=== PATIENT | male | born 1980 | race Caucasian/White ===

== ENCOUNTER 2022-12-18 07:02 | Day surgery (SDC) | payer BC ==
[2022-12-17 12:55] VITALS: BMI 31.6
[~2022-12-18 07:02] MED LIST: Dexmedetomidine 200 MCG/2 ML VIAL ONE; Ketamine 50 MG/ML (10ML VIAL) ONE; fentaNYL 50 mcg/mL 1 mL Vial ONE; fentaNYL PF 100 MCG/2 ML SYRINGE ONE
[2022-12-18] MEDS ORDERED: Acetaminophen 500 MG TAB ONE (07:47)
[2022-12-18] MEDS ORDERED: Oxymetazoline HCl 0.05% (30 ML BOT) ONE ×2 (07:57→08:03)
[2022-12-18] MEDS ORDERED: Lidocaine 1% (PF) 30 ML VIAL ONE (08:03)
[2022-12-18] MEDS ORDERED: EPINEPHrine 1 MG/ML AMP ONE (08:03)
[2022-12-18] MEDS ORDERED: Bacitracin Zinc Ointment 30 gm TUBE ONE (08:03)
[2022-12-18] MEDS ORDERED: PROPOFOL 200 MG/20 ML VIAL ONE (08:19)
[2022-12-18] MEDS ORDERED: PHENYLEPHRINE-NS 100 MCG/ML 10 ML SYRINGE ONE (08:19)
[2022-12-18] MEDS ORDERED: ePHEDrine Sulfate 50 MG/10 ML VIAL ONE (08:19)
[2022-12-18] MEDS ORDERED: Dexamethasone 20 MG/5 ML VIAL ONE (08:19)
[2022-12-18] MEDS ORDERED: Ondansetron PF 4 MG/2 ML Vial ONE (08:19)
[2022-12-18] MEDS ORDERED: Rocuronium Bromide 10 MG/ML (10ML VIAL) ONE (08:19)
[2022-12-18] MEDS ORDERED: fentaNYL PF 100 MCG/2 ML SYRINGE ONE (08:21)
[2022-12-18] MEDS ORDERED: SUGAMMADEX SODIUM 200 MG/2 ML VIAL ONE (08:21)
[2022-12-18] MEDS ORDERED: LevoFLOXacin 500 mg/D5W 100 ML BAG ONE (08:32)
[2022-12-18] MEDS ORDERED: fentaNYL 50 mcg/mL 1 mL Vial ONE (10:46)
[2022-12-18] MEDS ORDERED: Hydrocodone-Acetamin 15 ML UDCUP ONE (12:01)
== END 2022-12-18 13:17 | disposition home or self-care (01) ==
LOC: SDC 07:02
PROVIDERS: ATTEND Student in an Organized Health Care Education/Training Program
PROC: 0NR Head and Facial Bones, Replacement (ICD-10-PCS; principal; 2022-12-18)
PROC: 0CBPXZZ Excision of Tonsils, External Approach (ICD-10-PCS; principal; 2022-12-18)
PROC: 09TL0ZZ Resection of Nasal Turbinate, Open Approach (ICD-10-PCS; principal; 2022-12-18)
PROC: 09BM0ZZ Excision of Nasal Septum, Open Approach (ICD-10-PCS; principal; 2022-12-18)
DX: J35.1 Hypertrophy of tonsils (principal); J34.2 Deviated nasal septum; J34.3 Hypertrophy of nasal turbinates; G47.33 Obstructive sleep apnea (adult) (pediatric); Z88.0 Allergy status to penicillin; Z79.899 Other long term (current) drug therapy
CPT/HCPCS: 88304; J0171; J1100; J1956; J2001; J2405; J2704; J3010